=== PATIENT | female | born 1950 | race Two or more races ===

== ENCOUNTER → 2016-12-29 | Outpatient (CLI) | payer OTHER, MEDICAID | LOC: FIMAGING 08:04 | PROVIDERS: ATTEND Family Medicine | DX: Z12.31 Encounter for screening mammogram for malignant neoplasm of breast (principal) | CPT/HCPCS: G0202 ==

== ENCOUNTER 2018-02-09 15:18 | Emergency (ER) | payer OTHER, MEDICAID ==
--- NOTE | 2018-02-09 15:24 | EDPHY ---
H & P Time Seen by Provider: 02/09/18 15:24 HPI/ROS: 67 yo female presents with sudden onset of left nares bleeding. She states she does not get nosebleeds often. She is not on a blood thinner. She denies trauma to her nose. Patient does have a history of hypertension on lisinopril. Review of systems As per HPI General no fever no chills no weakness HEENT no eye pain no eye discharge. No eye redness, no sore throat Respiratory no cough, no shortness of breath Cardiac no chest pain, no peripheral edema GI no abdominal pain, no diarrhea, no constipation, no nausea, no vomiting no flank pain, no hematuria, no dysuria Musculoskeletal no myalgias, no joint pain Heme no easy bruising, no easy bleeding Endo no polyuria, no polydipsia Skin no rashes, no pruritus Neuro no syncope, no dizziness, no headaches Psych is no suicidal ideation, no homicidal ideation Source: Patient, Family Exam Limitations: Language barrier - Personal History Current Tetanus Diphtheria and Acellular Pertussis (TDAP): Yes - Medical/Surgical History Hx Asthma: No Hx Chronic Respiratory Disease: No Hx Diabetes: No Hx Cardiac Disease: Yes Hx Renal Disease: No Hx Cirrhosis: No Hx Alcoholism: No Hx HIV/AIDS: No Hx Splenectomy or Spleen Trauma: No Other PMH: valley fever/dental surgery/osteoporosis. HTN - Family History Significant Family History: No pertinent family hx - Social History Smoking Status: Never smoked Alcohol Use: None Drug Use: None - Physical Exam Exam: 67-year-old female alert and oriented no acute distress nontoxic appearance, afebrile Atraumatic normocephalic Extraocular muscles intact, anicteric Left naris with bleeding from anterior septum Right naris clean/dry/no bleeding Neck supple no JVD Lungs clear to auscultation bilaterally no wheezing Heart rapid rate regular rhythm Abdomen nondistended bowel sounds present soft nontender Extremities no cyanosis clubbing edema Skin no rash Constitutional: Initial Vital Signs Temperature (C) 36.7 C 02/09/18 15:27 Heart Rate 116 H 02/09/18 15:27 Respiratory Rate 18 02/09/18 15:27 Blood Pressure 142/113 H 02/09/18 15:27 O2 Sat (%) 96 02/09/18 15:27 O2 Delivery Mode Room Air Allergies/Adverse Reactions: azithromycin [From Zithromax] Allergy (Verified 02/09/18 15:28) Pt reports Rash Penicillins Allergy (Verified 02/09/18 15:28) Pt reports HIVES/ITCHING Home Medications: Medication Instructions Recorded Lisinopril [Zestril 10 mg (*)] 07/07/16 Medical Decision Making ED Course/Re-evaluation: Pt seen and evaluted for nosebleed, left . Nose suctioned out, Afrin applied intranasally. Comtinued to have brisk bleeding. TXA applied intranasally with pressure, marked decrease in bleeding, was then able to visualize an area on septum with bleeding. Silver Nitrate applied to areas of bleeding on septum. Bleeding stopped@4pm. I was prepared to pack the left naris with merocel if bleeding continued. I watched the patient for an additional one hour after the silver nitrate to the septum and there was no further bleeding No bleeding in nares and no blood in posterior pharynx @515 pm Pt was given one liter normal saline and labs were sent. CBC wnl BMP no acidosis INR normal Imp Anterior left epistaxis, initially brisk, bleeding controlled, no packing required Plan Discharge home. Nosebleed instructions Differential Diagnosis: Differential diagnosis considered but not limited to: Bleeding diathesis, epistaxis, anterior epistaxis, posterior epistaxis, nasal tumor, coagulopathy - Data Points Laboratory Results: 02/09/18 02/09/18 15:59 15:50 PT 14.5 SEC SEC (12.0-15.0) INR 1.11 (0.83-1.16) APTT 30.0 SEC SEC (23.0-38.0) POC Sodium 140 mEq/L mEq/L (135-145) POC Potassium 3.2 mEq/L L mEq/L (3.3-5.0) POC Chloride 106.0 mEq/L mEq/L (97-110) POC Total CO2 21 mEq/L L mEq/L (22-31) POC BUN 18 mg/dL mg/dL (7-23) POC Creatinine 0.7 mg/dL mg/dL (0.6-1.0) POC Glucose 121 mg/dL H mg/dL (70-100) POC Calcium 9.2 mg/dL mg/dL (8.5-10.4) Medications Given: Discontinued Medications Sodium Chloride (Ns) 1,000 mls @ 0 mls/hr IV ONCE ONE PRN Reason: Wide Open Stop: 02/09/18 15:56 Last Admin: 02/09/18 15:56 Dose: 1,000 mls Oxymetazoline HCl (Afrin Nasal [place]) 2 sprays EACHNARE EDNOW ONE Stop: 02/09/18 15:27 Last Admin: 02/09/18 15:35 Dose: 2 sprays Silver Nitrate/Potassium Nitrate (Silver Nitrate Applicator) 1 each TP EDNOW ONE Stop: 02/09/18 15:26 Last Admin: 02/09/18 15:56 Dose: 1 each Tranexamic Acid (Cyklokapron) 1,000 mg TP EDNOW ONE Stop: 02/09/18 15:51 Last Admin: 02/09/18 15:50 Dose: 1,000 mg Point of Care Test Results: CBC CBC Collection Date 02/09/18 CBC Collection Time 15:51 WBC 11.7 RBC 4.57 HGB 13.7 HCT 41.5 PLT 290 Neut # 8.3 Neut 70.8 LYMPH # 2.5 LYMPH 21.4 Other WBC # 0.9 Other WBC 7.8 MCV 90.8 Chemistry 02/09/18 15:59 POC Sodium 140 mEq/L mEq/L (135-145) POC Potassium 3.2 mEq/L L mEq/L (3.3-5.0) POC Chloride 106.0 mEq/L mEq/L (97-110) POC Total CO2 21 mEq/L L mEq/L (22-31) POC BUN 18 mg/dL mg/dL (7-23) POC Creatinine 0.7 mg/dL mg/dL (0.6-1.0) POC Glucose 121 mg/dL H mg/dL (70-100) POC Calcium 9.2 mg/dL mg/dL (8.5-10.4) Departure - Departure Disposition: Home, Routine, Self-Care Clinical Impression: Acute anterior epistaxis Condition: Good Instructions: Nosebleed (ED) Referrals: La Kelley MD [Primary Care Provider] - As per Instructions Print Language: Uzbek
[2018-02-09] MEDS ORDERED: SILVER NITRATE APPLICATOR 1 APPL TP ONE (15:25)
[2018-02-09] MEDS ORDERED: OXYMETAZOLINE 30 ML NASAL SPRAY EACHNARE ONE (15:26)
[2018-02-09] MEDS ORDERED: TRANEXAMIC ACID 1,000 MG/10 ML VIAL ONE (15:42)
[2018-02-09] MEDS ORDERED: TRANEXAMIC ACID 1,000 MG/10 ML VIAL TP ONE (15:50)
[2018-02-09] MEDS ORDERED: NS 1,000 ML IV ONE (15:55)
[2018-02-09 16:41] LABS: INR 1.11 (0.83-1.16); PROTIME(PATIENT) 14.5 SEC (12.0-15.0)
[2018-02-09 17:32] VITALS: BP 120/91
== END 2018-02-09 17:28 | disposition home or self-care (01) ==
LOC: CED 15:18
PROC: 3E09XTZ Introduction of Destructive Agent into Nose, External Approach (ICD-10-PCS; principal; 2018-02-09)
DX: R04.0 Epistaxis (principal); I10 Essential (primary) hypertension
CPT/HCPCS: 80048-PO

== ENCOUNTER 2018-11-21 12:03 | Emergency (ER) | payer OTHER, MEDICAID ==
[2018-11-21] MEDS ORDERED: NS 500 ML IV ONE (12:14)
--- NOTE | 2018-11-21 12:18 | EDPHY ---
H & P Time Seen by Provider: 11/21/18 12:06 HPI/ROS: HPI Abdominal pain. 68-year-old female by private vehicle with her son. This patient complains of right lower quadrant and right mid lateral abdominal pain, starting last evening. Pain described as a cramping and burning sensation. Worse today. She has not had any associated nausea or vomiting. Last bowel movement was this morning. She describes this is normal. No diarrhea. No bloody or melenic stool. Last meal was this morning at 8:00 a.m.. No prior abdominal surgical history. She denies any urinary complaints. ROS: Constitutional: No fever, no chills. No weakness. Eyes: No discharge. No changes in vision. ENT: No sore throat. No nasal congestion or rhinorrhea. Respiratory: No cough. No shortness of breath. Cardiac: No chest pain, no palpitations. Gastrointestinal: As above, no vomiting, no diarrhea. Genitourinary: No hematuria. No dysuria or increased frequency with urination. Musculoskeletal: No back pain. No neck pain. No myalgias or arthralgias. Skin: No rashes. Neurological: No headache. No focal weakness or altered sensation. Past medical history: Hypertension. She takes lisinopril for this. Valley fever, dental surgery, osteoporosis. Her primary care physician is Dr. Kelley. Social history: She is here with her son. She lives both with her son and by herself. Nonsmoker. No alcohol. Physical Exam: General Appearance: Alert, no distress. This patient is responding to questions appropriately and in full sentences. This patient appears well- hydrated and well-nourished. Eyes: Pupils equal and round no pallor or injection. No lid edema, erythema or injection. Respiratory: There are no retractions, lungs are clear to auscultation with good air movement bilaterally. Cardiovascular: Regular rate and rhythm. No murmur. Gastrointestinal: Abdomen is soft with vague and mild right lower quadrant and right mid lateral tenderness on palpation, no masses, bowel sounds normal. No focal tenderness at McBurney's point. No Stephen sign. Neurological: Motor sensory function is grossly intact. Cranial nerves are normal. Gait is normal. Skin: Warm and dry, no rashes. Musculoskeletal: Neck is supple and nontender. Extremities are symmetrical. All joints range without pain or impingement. Psychiatric: No agitation. No depression. Database: EKG: Imaging: CT abdomen and pelvis with IV contrast: This is essentially an unremarkable study. The appendix is well visualized and is unremarkable. No evidence of ureterolithiasis or hydronephrosis. She has a right adnexal cyst but that was present in May 2013. Her pancreatic duct is slightly more dilated from the study done in 2012 but this is likely incidental. The lung bases show some evidence of bronchitis but no infiltrate. No other significant findings. Results were discussed with staff radiologist Dr. David Townsend. Procedures: Emergency department course: Triage vital signs reviewed and are unremarkable. IV was placed. She was started on IV normal saline with 500 cc to be given over the next hour. CT imaging will be obtained to evaluate for appendicitis pending a normal creatinine. She is declining pain medication and antiemetics at this time. 12:45 p.m., the patient was given 0.25 mg of IV hydromorphone for pain. Urine dip did show blood. This is sent for micro analysis and culture. She denies any symptoms suggestive of urinary tract infection and she is not febrile. 1:50 p.m., the patient was re-evaluated, she is resting comfortably at this time. Repeat abdominal exam she is soft and without significant tenderness on palpation. Results of her CT scan and emergency department testing discussed with her and her son in detail. Her son tells me that she has chronic hematuria and her primary care physician, Dr. Kelley is aware of this. She feels comfortable going home at this time and I feel she is safe for discharge. I discussed follow-up with her primary care physician Dr. Kelley in 2 days for re-evaluation. I also explained that her urine culture results and microscopy results will be available at that time and can be followed up by Dr. Kelley. I do not feel she requires an antibiotic at this time. She feels comfortable with this plan. Return to emergency department precautions were reviewed with her and her son. All of their questions were answered. The patient was discharged in good condition with her son. Differential Diagnosis: The differential diagnosis on this patient includes but is not limited to constipation, biliary colic, appendicitis. This represents a partial list of diagnoses considered. These considerations are based on history, physical exam , past history, reassessment and diagnostic testing. Smoking Status: Never smoked Constitutional: Initial Vital Signs Temperature (C) 37.0 C 11/21/18 12:09 Heart Rate 85 11/21/18 12:09 Respiratory Rate 16 11/21/18 12:09 Blood Pressure 143/79 H 11/21/18 12:09 O2 Sat (%) 95 11/21/18 12:09 O2 Delivery Mode Room Air Allergies/Adverse Reactions: azithromycin [From Zithromax] Allergy (Verified 11/21/18 12:09) Pt reports Rash Penicillins Allergy (Verified 11/21/18 12:09) Pt reports HIVES/ITCHING Home Medications: Medication Instructions Recorded Lisinopril [Zestril 10 mg (*)] 07/07/16 Medical Decision Making - Data Points Laboratory Results: 11/21/18 12:38 POC Sodium 138 mEq/L mEq/L (135-145) POC Potassium 4.1 mEq/L mEq/L (3.3-5.0) POC Chloride 113.0 mEq/L H mEq/L (97-110) POC Total CO2 28 mEq/L mEq/L (22-31) POC BUN 13 mg/dL mg/dL (7-23) POC Creatinine 0.5 mg/dL L mg/dL (0.6-1.0) POC Glucose 108 mg/dL H mg/dL (70-100) POC Calcium 10.2 mg/dL mg/dL (8.5-10.4) POC Total Bilirubin 0.9 mg/dL mg/dL (0.1-1.4) POC AST 32 IU/L IU/L (14-46) POC ALT 27 IU/L IU/L (9-52) POC Alk Phosphatase 73 IU/L IU/L (38-126) POC Total Protein 8.0 g/dL g/dL (6.3-8.2) POC Albumin 4.0 g/dL g/dL (3.5-5.0) Medications Given: Discontinued Medications Hydromorphone HCl (Dilaudid) 0.25 mg IVP EDNOW ONE Stop: 11/21/18 12:41 Last Admin: 11/21/18 12:54 Dose: 0.25 mg Sodium Chloride (Ns) 500 mls @ 0 mls/hr IV EDNOW ONE; Wide Open PRN Reason: Protocol Stop: 11/21/18 12:15 Last Admin: 11/21/18 12:32 Dose: 500 mls Point of Care Test Results: CBC CBC Collection Date 11/21/18 CBC Collection Time 12:28 WBC 8.89 RBC 4.80 HGB 14.5 HCT 42.9 PLT 343 Neut # 5.74 Neut 64.6 LYMPH # 2.05 LYMPH 23.1 MCV 89.4 Chemistry 11/21/18 12:38 POC Sodium 138 mEq/L mEq/L (135-145) POC Potassium 4.1 mEq/L mEq/L (3.3-5.0) POC Chloride 113.0 mEq/L H mEq/L (97-110) POC Total CO2 28 mEq/L mEq/L (22-31) POC BUN 13 mg/dL mg/dL (7-23) POC Creatinine 0.5 mg/dL L mg/dL (0.6-1.0) POC Glucose 108 mg/dL H mg/dL (70-100) POC Calcium 10.2 mg/dL mg/dL (8.5-10.4) POC Total Bilirubin 0.9 mg/dL mg/dL (0.1-1.4) POC AST 32 IU/L IU/L (14-46) POC ALT 27 IU/L IU/L (9-52) POC Alk Phosphatase 73 IU/L IU/L (38-126) POC Total Protein 8.0 g/dL g/dL (6.3-8.2) POC Albumin 4.0 g/dL g/dL (3.5-5.0) Urine Dip Collection Date 11/21/18 Collection Time 13:18 Specific [place] (1.002-1.030) 1.010 PH (5.0-7.5) 7.0 Leukocytes (Negative) Negative Nitrites (Negative) Negative Protein (Negative) Negative Glucose (Negative) Negative Ketones (Negative) Negative Urobilnogen (0.2-1.0 EU) 0.2 Bilirubin (Negative) Negative Blood (Negative) 1+ Departure - Departure Disposition: Home, Routine, Self-Care Clinical Impression: Abdominal pain Condition: Good Instructions: Acute Abdominal Pain (ED) Additional Instructions: Read and follow provided instructions. Follow-up with your primary care physician, Dr. Kelley, in two days for re- evaluation. Dr. Kelley will also have access to the results of your urine culture study in urine microscopy study. Take your medication as prescribed. Return to the emergency department for worsening abdominal pain, vomiting, fever or other serious concerns. Referrals: La Kelley MD [Primary Care Provider] - As per Instructions
[2018-11-21] MEDS ORDERED: HYDROmorphONE/DILAUDID 2 MG/ML INJ IVP ONE (12:40)
[2018-11-21] MEDS ORDERED: IOPAMIDOL (ISOVUE-300) 100 ML BTL ONE (13:02)
[2018-11-21 14:16] VITALS: BP 134/77
== END 2018-11-21 14:02 | disposition home or self-care (01) ==
LOC: CED 12:03
DX: R10.31 Right lower quadrant pain (principal); E86.9 Volume depletion, unspecified; I10 Essential (primary) hypertension
CPT/HCPCS: 74177; 96361; 96374; 99285; J1170; Q9967; 80053-ER; 85025-QW-ER